=== PATIENT | male | born 1940 | race Caucasian/White ===

== ENCOUNTER 2018-03-23 07:36 | Day surgery (SDC) | payer OTHER ==
--- OUTSIDE RECORDS SUMMARY | 2018-03-23 07:40 | XMS REPORT | Clinical Summary ---
:1940 Author Organization [facility] Address [address] [place] [address] Care Team Providers Name Role Phone Amalia Almonte BLOCK SAW OPERATOR-C Primary Care Provider Allergies No Known Allergies Medications Medication Sig Dispensed Refills Start Date End Date Status losartan (COZAAR) Take 100 mg by 0 Active 100 MG tablet mouth daily. aspirin (ECOTRIN) Take 81 mg by 0 Active 81 MG enteric mouth daily. coated tablet clopidogrel Take 75 mg by 0 Active (PLAVIX) 75 mg mouth daily. tablet famotidine Take 20 mg by 0 Active (PEPCID) 20 MG mouth 2 (two) tablet times a day. atorvastatin Take 20 mg by 0 Active (LIPITOR) 20 MG mouth daily. tablet Default OP ins insulin 70/30 NPH Inject under 0 Active and regular human the skin. (HumuLIN 70/30) Sliding scale 100 unit/mL (70-30) injection metFORMIN Take 500 mg by 0 Active (GLUCOPHAGE) 500 mouth 2 (two) mg tablet times a day with meals. metoprolol Take 50 mg by 0 Active tartrate mouth 2 (two) (LOPRESSOR) 50 mg times a day. tablet amLODIPine Take 10 mg by 0 Active (NORVASC) 10 mg mouth as tablet needed. amlodipine-benazep Take 1 capsule 0 10/04/2017 Discontinued ril (LOTREL) 10-20 by mouth daily. mg per capsule ferrous sulfate Take 325 mg by 0 10/26/2017 Discontinued 325 (65 FE) MG mouth daily tablet with breakfast. traMADol (ULTRAM) Take 50 mg by 0 10/26/2017 Discontinued 50 mg tablet mouth every 6 (six) hours as needed for moderate pain. SUPREP BOWEL PREP Take 2 Bottles 354 mL 0 10/10/2017 10/10/2017 KIT 17.5-3.13-1.6 (354 mL total) gram recon soln by mouth once for 1 dose. Take as directed by physician traMADol (ULTRAM) Take 1 tablet 50 tablet 0 10/26/2017 11/05/2017 50 mg tablet (50 mg total) by mouth every 6 (six) hours as needed (pain) for up to 10 days. Active Problems Problem Noted Date Rectal cancer 10/18/2017 CA of rectum 10/18/2017 Encounters Date Type Specialty Care Team Description 03/01/2018 Office Visit General Surgery Dustin Cam Rectal cancer ([facility]) MD Dar (Primary Dx) Kya Allison NP-C 02/14/2018 Office Visit General Surgery Dustin Cam CA of rectum ([facility]) MD Dar (Primary Dx) Kya Allison NP-C 01/27/2018 Orders Only General Surgery Dustin Cam MD 01/13/2018 Hospital Encounter Radiology CamDustin garcia Ileostomy status MD Dar ([facility]) 01/12/2018 Orders Only General Surgery Dustin Cam MD 01/11/2018 Office Visit General Surgery Dustin Cam Rectal cancer ([facility]) MD Dar (Primary Dx) 01/11/2018 Orders Only General Surgery Dustin Cam Ileostomy status MD Dar ([facility]) (Primary Dx) 11/22/2017 Office Visit General Surgery Keegan, Dehydration ( Primary Dx); Kya CA of rectum QUINTON Griggs 11/10/2017 Emergency Emergency Nura Sousa, Medicine B., DO moderate (Primary Dx) 11/10/2017 Office Visit General Surgery CamDustin garcia Rectal cancer MD Dar (Primary Dx) 11/01/2017 Office Visit General Surgery Letisamy, Rectal cancer Kya (Primary Dx) QUINTON Griggs 10/18/2017 Anesthesia Event General Surgery Jerica Syed, PARK LANDSCAPE ARCHITECT 10/18/2017 Surgery General Surgery Dustin Cam ROBOTIC ASSISTED MD Dar LAPARSCOPIC LOW ANTERIOR RESECTION W/LOOP ILEOSTOMY 10/18/2017 - Hospital Encounter General Surgery Dustin Cam CA of rectum 10/26/2017 MD Dar 10/10/2017 Orders Only General Surgery Dustin Cam MD 10/07/2017 Documentation General Surgery Kya Allison NP-C 10/04/2017 Office Visit General Surgery Dustin Cam Rectal cancer MD Dar (Primary Dx) 10/04/2017 Pre-Admit Testing Pre-Admission Dustin Cam Preop examination ( Primary Dx); Appointment Testing MD Dar Type 2 diabetes mellitus with complication, unspecified termite control servicer insulin use status 09/15/2017 Orders Only General Surgery Dustin Cam MD 09/14/2017 Office Visit General Surgery Dustin Cam Rectal cancer MD Dar (Primary Dx) 06/10/2017 Orders Only General Surgery Keegan, Malignant neoplasm Kya of rectum (Primary QUINTON Griggs Dx) 06/07/2017 Hospital Encounter Radiology Dustin Cam Rectal cancer MD Dar 06/07/2017 Office Visit General Surgery Dustin Cam Rectal cancer MD Dar (Primary Dx) 06/07/2017 Orders Only General Surgery Dustin Cam Rectal cancer MD Dar (Primary Dx) after 03/22/2017 Social History Tobacco Use Types Packs/Day Years Used Date Never Smoker Smokeless Tobacco: Never Used Alcohol Use Drinks/Week oz/Week Comments No Sex Assigned at Date Recorded Not on file Job Start Date Occupation Industry Not on file Not on file Not on file Travel History Travel Start Travel End No recent travel history available. Last Filed Vital Signs Vital Sign Reading Time Taken Blood Pressure 148/75 03/01/2018 1:06 PM SECOND WATCH SERGEANT Pulse 77 03/01/2018 1:06 PM SECOND WATCH SERGEANT Temperature 36.7 C (98 F) 03/01/2018 1:06 PM SECOND WATCH SERGEANT Respiratory Rate 20 11/10/2017 9:21 PM CDT Oxygen Saturation 99% 11/10/2017 9:21 PM CDT Inhaled Oxygen Concentration - - Weight 54.4 kg (120 lb) 01/11/2018 12:57 PM CDT Height 170.2 cm (5' 7") 11/10/2017 1:51 PM CDT Body Mass Index 18.79 01/11/2018 12:57 PM CDT Plan of Treatment Health Maintenance Due Date Last Done Comments DIABETIC RETINAL EYE EXAM 1940 DIABETIC FOOT EXAM 07/26/1950 SHINGRIX VACCINE (1 of 2) 07/26/1991 ZOSTER VACCINE 2001 PNEUMOCOCCAL POLYSACCHARIDE VACCINE AGE 65 AND OVER 2006 PNEUMOCOCCAL-13 2006 INFLUENZA VACCINE 11/09/2017 Implants Implanted Type Area Physician Office Nurse Device Shelf Model / Identifier Expiration Serial / Date Lot Vessel Sealer Extend Surgical N/A: N/A INTUITIVE 06/09/2019 [id number] / Implanted: Qty: 1 on 10/18/2017 by Dustin Cam MD [employer] / Device [id number] Procedures Procedure Name Priority Date/Time Associated Comments Diagnosis SURGICAL PATHOLOGY Routine 01/23/2018 REQUEST FL COLON GASTROGRAFIN Routine 01/13/2018 10:00 Ileostomy status Results for this WATER SOLUBLE ENEMA AM CDT (HCC) procedure are in the results section. LACTIC ACID LEVEL, Timed 11/10/2017 7:38 Results for this SEPSIS - NOW AND PM CDT procedure are in REPEAT 2X EVERY [address] the results HOURS section. CT HEAD WO CONTRAST STAT 11/10/2017 5:42 Results for this PM CDT procedure are in the results section. PHOSPHORUS LEVEL STAT 11/10/2017 2:56 Results for this PM CDT procedure are in the results section. MAGNESIUM LEVEL STAT 11/10/2017 2:56 Results for this PM CDT procedure are in the results section. LACTIC ACID LEVEL, STAT 11/10/2017 2:56 Results for this SEPSIS - NOW AND PM CDT procedure are in REPEAT 2X EVERY 3 the results HOURS section. ZZESTIMATED GFR STAT 11/10/2017 2:56 Results for this PM CDT procedure are in the results section. B NATRIURETIC PEPTIDE STAT 11/10/2017 2:56 Results for this PM CDT procedure are in the results section. TROPONIN STAT 11/10/2017 2:56 Results for this PM CDT procedure are in the results section. COMPREHENSIVE STAT 11/10/2017 2:56 Results for this METABOLIC PANEL PM CDT procedure are in the results section. HC COMPLETE BLD COUNT STAT 11/10/2017 2:56 Results for this W/AUTO DIFF PM CDT procedure are in the results section. ECG 12-LEAD STAT 11/10/2017 2:29 Results for this PM CDT procedure are in the results section. POC GLUCOSE Routine 10/26/2017 11:30 Results for this AM CDT procedure are in the results section. POC GLUCOSE Routine 10/26/2017 8:01 Results for this AM CDT procedure are in the results section. ZZESTIMATED GFR Routine 10/26/2017 4:00 Results for this AM CDT procedure are in the results section. HC COMPLETE BLD COUNT Routine 10/26/2017 4:00 Results for this W/AUTO DIFF AM CDT procedure are in the results section. BASIC METABOLIC PANEL Routine 10/26/2017 4:00 Results for this AM CDT procedure are in the results section. POC GLUCOSE Routine 10/25/2017 8:19 Results for this PM CDT procedure are in the results section. POC GLUCOSE Routine 10/25/2017 4:18 Results for this PM CDT procedure are in the results section. POC GLUCOSE Routine 10/25/2017 12:18 Results for this PM CDT procedure are in the results section. POC GLUCOSE Routine 10/25/2017 7:50 Results for this AM CDT procedure are in the results section. ZZESTIMATED GFR Routine 10/25/2017 4:00 Results for this AM CDT procedure are in the results section. BASIC METABOLIC PANEL Routine 10/25/2017 4:00 Results for this AM CDT procedure are in the results section. MAGNESIUM LEVEL Routine 10/25/2017 4:00 Results for this AM CDT procedure are in the results section. HC COMPLETE BLD COUNT Routine 10/25/2017 3:45 Results for this W/AUTO DIFF AM CDT procedure are in the results section. POC GLUCOSE Routine 10/24/2017 4:10 Results for this PM CDT procedure are in the results section. CT ABDOMEN PELVIS W Routine 10/24/2017 3:40 Results for this CONTRAST PM CDT procedure are in the results section. POC GLUCOSE Routine 10/24/2017 11:18 Results for this AM CDT procedure are in the results section. POC GLUCOSE Routine 10/24/2017 8:01 Results for this AM CDT procedure are in the results section. ZZESTIMATED GFR Routine 10/24/2017 4:08 Results for this AM CDT procedure are in the results section. MAGNESIUM LEVEL Routine 10/24/2017 4:08 Results for this AM CDT procedure are in the results section. BASIC METABOLIC PANEL Routine 10/24/2017 4:08 Results for this AM CDT procedure are in the results section. HC COMPLETE BLD COUNT Routine 10/24/2017 4:08 Results for this W/AUTO DIFF AM CDT procedure are in the results section. POC GLUCOSE Routine 10/23/2017 7:33 Results for this PM CDT procedure are in the results section. POC GLUCOSE Routine 10/23/2017 5:12 Results for this PM CDT procedure are in the results section. POC GLUCOSE Routine 10/23/2017 11:41 Results for this AM CDT procedure are in the results section. POC GLUCOSE Routine 10/23/2017 8:06 Results for this AM CDT procedure are in the results section. HC COMPLETE BLD COUNT Routine 10/23/2017 4:50 Results for this W/AUTO DIFF AM CDT procedure are in the results section. ZZESTIMATED GFR Routine 10/23/2017 4:00 Results for this AM CDT procedure are in the results section. MAGNESIUM LEVEL Routine 10/23/2017 4:00 Results for this AM CDT procedure are in the results section. BASIC METABOLIC PANEL Routine 10/23/2017 4:00 Results for this AM CDT procedure are in the results section. POC GLUCOSE Routine 10/22/2017 5:13 Results for this PM CDT procedure are in the results section. POC GLUCOSE Routine 10/22/2017 11:18 Results for this AM CDT procedure are in the results section. HC COMPLETE BLD COUNT Routine 10/22/2017 8:00 Results for this W/AUTO DIFF AM CDT procedure are in the results section. ZZESTIMATED GFR Routine 10/22/2017 7:50 Results for this AM CDT procedure are in the results section. MAGNESIUM LEVEL Routine 10/22/2017 7:50 Results for this AM CDT procedure are in the results section. BASIC METABOLIC PANEL Routine 10/22/2017 7:50 Results for this AM CDT procedure are in the results section. POC GLUCOSE Routine 10/22/2017 7:09 Results for this AM CDT procedure are in the results section. POC GLUCOSE Routine 10/21/2017 8:35 Results for this PM CDT procedure are in the results section. POC GLUCOSE Routine 10/21/2017 5:36 Results for this PM CDT procedure are in the results section. XR ABDOMEN 1 VW Routine 10/21/2017 4:55 Results for this PM CDT procedure are in the results section. POC GLUCOSE Routine 10/21/2017 1:02 Results for this PM CDT procedure are in the results section. POC GLUCOSE Routine 10/21/2017 7:33 Results for this AM CDT procedure are in the results section. ZZESTIMATED GFR Routine 10/21/2017 4:00 Results for this AM CDT procedure are in the results section. PHOSPHORUS LEVEL Routine 10/21/2017 4:00 Results for this AM CDT procedure are in the results section. MAGNESIUM LEVEL Routine 10/21/2017 4:00 Results for this AM CDT procedure are in the results section. BASIC METABOLIC PANEL Routine 10/21/2017 4:00 Results for this AM CDT procedure are in the results section. HC COMPLETE BLD COUNT Routine 10/21/2017 3:25 Results for this W/AUTO DIFF AM CDT procedure are in the results section. POC GLUCOSE Routine 10/20/2017 9:32 Results for this PM CDT procedure are in the results section. POC GLUCOSE Routine 10/20/2017 5:58 Results for this PM CDT procedure are in the results section. POC GLUCOSE Routine 10/20/2017 1:25 Results for this PM CDT procedure are in the results section. POC GLUCOSE Routine 10/20/2017 8:33 Results for this AM CDT procedure are in the results section. ZZESTIMATED GFR Routine 10/20/2017 4:00 Results for this AM CDT procedure are in the results section. PHOSPHORUS LEVEL Routine 10/20/2017 4:00 Results for this AM CDT procedure are in the results section. MAGNESIUM LEVEL Routine 10/20/2017 4:00 Results for this AM CDT procedure are in the results section. BASIC METABOLIC PANEL Routine 10/20/2017 4:00 Results for this AM CDT procedure are in the results section. HC COMPLETE BLD COUNT Routine 10/20/2017 4:00 Results for this W/AUTO DIFF AM CDT procedure are in the results section. POC GLUCOSE Routine 10/19/2017 9:12 Results for this PM CDT procedure are in the results section. POC GLUCOSE Routine 10/19/2017 3:40 Results for this PM CDT procedure are in the results section. POC GLUCOSE Routine 10/19/2017 1:45 Results for this PM CDT procedure are in the results section. POC GLUCOSE Routine 10/19/2017 11:37 Results for this AM CDT procedure are in the results section. CONSULT TO OSTOMY CARE Routine 10/19/2017 8:11 NURSE AM CDT POC GLUCOSE Routine 10/19/2017 7:20 Results for this AM CDT procedure are in the results section. ZZESTIMATED GFR Routine 10/19/2017 4:00 Results for this AM CDT procedure are in the results section. PHOSPHORUS LEVEL Routine 10/19/2017 4:00 Results for this AM CDT procedure are in the results section. MAGNESIUM LEVEL Routine 10/19/2017 4:00 Results for this AM CDT procedure are in the results section. BASIC METABOLIC PANEL Routine 10/19/2017 4:00 Results for this AM CDT procedure are in the results section. HC COMPLETE BLD COUNT Routine 10/19/2017 4:00 Results for this W/AUTO DIFF AM CDT procedure are in the results section. POC GLUCOSE Routine 10/18/2017 9:31 Results for this PM CDT procedure are in the results section. HEMOGLOBIN A1C Routine 10/18/2017 7:19 Results for this PM CDT procedure are in the results section. POC GLUCOSE Routine 10/18/2017 6:50 Results for this PM CDT procedure are in the results section. ID AN ELECTIVE Routine 10/18/2017 2:24 ENDOTRACHEAL AIRWAY PM CDT Procedure Note - Zac Cameron CRNA - 10/18/2017 2:24 PM CDT Airway Date/Time: 10/18/2017 1:34 PM Performed by: ZAC CAMERON Authorized by: MACY KAMARA Location: OR Urgency: Elective Difficult Airway: No Resident/WASTE DISPOSAL ATTENDANT/AA: ZAC CAMERON Performed by: resident/WASTE DISPOSAL ATTENDANT/AA Preoxygenated with 100% O2: Yes Mask Ventilation: Assisted mask Final Airway Type: Endotracheal airway Final Endotracheal Airway: ETT Cuffed: Yes Technique Used: Direct laryngoscopy Devices/Methods Used in Placement: Intubating stylet Insertion Site: Oral Blade Type: Wise Laryngoscope Blade/Videolaryngoscope Blade Size: 2 ETT Size (mm): 7.0 Cuff at minimum occlusion pressure: Yes Measured from: Lips ETT to Lips (cm): 24 Placement Verified by: CO2 detection, direct visualization and equal breath sounds Laryngoscopic view: Grade I - full view of glottis Rapid Sequence Induction (RSI): No Modified RSI: No Number of Attempts at Approach: 1 Eyes taped immediately after LOC. Atraumatic DL. No apparent change to oropharynx/lips ARTERIAL LINE Routine 10/18/2017 2:05 PM CDT Procedure Note - Macy Kamara MD - 10/18/2017 2:05 PM CDT Arterial line Performed by: MACY KAMARA Authorized by: MACY KAMARA Patient Location: OR Start Time: 10/18/2017 2:06 PM End Time: 10/18/2017 2:06 PM Staff: Anesthesiologist: MACY KAMARA Performed by: Anesthesiologist Pre-procedure: patient identified, IV checked, site and side verified, risks and benefits discussed, procedure verified, surgical consent complete, patient position confirmed, monitors and equipment checked and pre-op evaluation complete MSBT: antiseptic used, all elements of maximal sterile barrier technique followed, hand hygiene performed, cap/gown used by other personnel and solutions labeled Indications: Indications: hemodynamic monitoring Anesthesia: Anesthesia: General Procedure Details: Arterial Line placement: Placed post induction Line placement site: Radial Line placement side: Right Arterial line gauge: 20 G Number of attempts: 2 Ultrasound guidance used: No Post-procedure: Post-procedure: Sterile dressing applied Post procedure circulation, sensation, movement: Normal Patient tolerance: Patient tolerated the procedure well with no immediate complications RESECTION, COLON, LOW ANTERIOR, 10/18/2017 12:30 PM CDT CA of rectum LAPAROSCOPIC, ROBOT-ASSISTED Special Needs XI POC GLUCOSE Routine 10/18/2017 10:38 AM Results for this CDT procedure are in the results section. SURGICAL PATHOLOGY Routine 10/18/2017 8:57 AM Results for this REQUEST CDT procedure are in the results section. SURGICAL PATHOLOGY Routine 10/18/2017 8:57 AM Results for this REQUEST CDT procedure are in the results section. SURGICAL PATHOLOGY Routine 10/18/2017 8:57 AM Results for this REQUEST CDT procedure are in the results section. ZZESTIMATED GFR Routine 10/04/2017 9:11 AM Results for this CDT procedure are in the results section. CBC HEMOGRAM Routine 10/04/2017 9:11 AM Preop examination Results for this CDT procedure are in the results section. TYPE AND SCREEN Routine 10/04/2017 9:11 AM Preop examination Results for this CDT procedure are in the results section. HEMOGLOBIN A1C Routine 10/04/2017 9:11 AM Type 2 diabetes Results for this CDT mellitus with procedure are in complication, the results unspecified long section. term insulin use status Preop examination COMPREHENSIVE Routine 10/04/2017 9:11 AM Preop examination Results for this METABOLIC PANEL CDT procedure are in the results section. MRI PELVIS W WO STAT 06/07/2017 3:00 PM Rectal cancer Results for this CONTRAST SECOND WATCH SERGEANT procedure are in the results section. ZZESTIMATED GFR Routine 06/07/2017 2:02 PM Results for this SECOND WATCH SERGEANT procedure are in the results section. CREATININE LEVEL Routine 06/07/2017 2:02 PM Results for this SECOND WATCH SERGEANT procedure are in the results section. POC GLUCOSE Routine 06/07/2017 2:01 PM Results for this SECOND WATCH SERGEANT procedure are in the results section. after 03/22/2017 Results Surgical pathology request (01/23/2018)Only the most recent of4 resultswithin the time period is included. Specimen Tissue Narrative Performed At [place] Colon Gastrografin Water Soluble Enema (01/13/2018 10:00 AM CDT) Narrative Performed At EXAMINATION:[place] COLON GASTROGRAFIN WATER SOLUBLE ENEMA HM RADIANT CLINICAL HISTORY:Z93.2 Ileostomy status, ileostomy Closure COMPARISON:CT of the abdomen and pelvis dated 10/24/2017 TECHNIQUE: The patient's loop ileostomy was catheterized using a flexible catheter. Gastrografin was instilled to opacify the ileostomy as well as the colon. The colon was opacified in a antegrade fashion to the rectum. Spot radiographs and overhead films were obtained. FLUOROSCOPIC TIME:6.7 minutes NUMBER OF IMAGES: 23 FINDINGS: The colon was normally distensible. There is evidence of prior low anterior resection with an anastomosis in the pelvis. There is some thickening at the level of the anastomosis but without evidence of extravasation of contrast material. IMPRESSION: Prior low anterior resection without evidence of anastomotic leak. [facility]-[id number] Procedure Note [facility], Radiology Results Incoming - 01/13/2018 10:14 AM CDT EXAMINATION: [place] COLON GASTROGRAFIN WATER SOLUBLE ENEMA CLINICAL HISTORY: Z93.2 Ileostomy status, ileostomy Closure COMPARISON: CT of the abdomen and pelvis dated 10/24/2017 TECHNIQUE: The patient's loop ileostomy was catheterized using a flexible catheter. Gastrografin was instilled to opacify the ileostomy as well as the colon. The colon was opacified in a antegrade fashion to the rectum. Spot radiographs and overhead films were obtained. FLUOROSCOPIC TIME: 6.7 minutes NUMBER OF IMAGES: 23 FINDINGS: The colon was normally distensible. There is evidence of prior low anterior resection with an anastomosis in the pelvis. There is some thickening at the level of the anastomosis but without evidence of extravasation of contrast material. IMPRESSION: Prior low anterior resection without evidence of anastomotic leak. [facility]-[id number] Performing Organization Address City/[facility]/Zipcode Phone Number [facility] [address] [place] [address] Lactic acid level, SEPSIS - Now and repeat 2x every 3 hours (11/10/2017 7:38 PM CDT)Only the most recent of2 resultswithin the time period is included. Lactic acid 2.2 0.5 - 2.2 mmol/L [facility] DEPARTMENT OF PATHOLOGY AND GENOMIC MEDICINE Specimen Blood Performing Organization Address City/[facility] Phone Number [facility] DEPARTMENT OF PATHOLOGY AND [address] [place] [id number] Head Wo Contrast (11/10/2017 5:42 PM CDT) Narrative Performed At EXAMINATION: CT HEAD WO CONTRAST RADIANT CLINICAL HISTORY: Neuro deficit(s)subacute, near syncope COMPARISON:None TECHNIQUE: Noncontrast CT of the brain was performed from the skull base to the vertex. Both soft tissue and bone reconstruction algorithms are interpreted. CT imaging was performed with iterative reconstruction techniques and/or automated exposure control to reduce radiation dose. FINDINGS: No intracranial hemorrhage, extra-axial collection, or mass-effect is seen.No acute cortical infarct is identified. No hyperdense vessel is seen. 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 Small chronic lacunar infarcts are noted in the left basal ganglia. No air-fluid level is seen in the visualized portions of the paranasal sinuses. Mastoid air cells are clear. IMPRESSION: No acute intracranial abnormality identified. [facility]-[id number] Procedure Note Interface, Radiology Results Incoming - 11/10/2017 5:48 PM CDT EXAMINATION: CT HEAD WO CONTRAST CLINICAL HISTORY: Neuro deficit(s) subacute, near syncope COMPARISON: None TECHNIQUE: Noncontrast CT of the brain was performed from the skull base to the vertex. Both soft tissue and bone reconstruction algorithms are interpreted. CT imaging was performed with iterative reconstruction techniques and/or automated exposure control to reduce radiation dose. FINDINGS: No intracranial hemorrhage, extra-axial collection, or mass-effect is seen. No acute cortical infarct is identified. No hyperdense vessel is seen. 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 Small chronic lacunar infarcts are noted in the left basal ganglia. No air-fluid level is seen in the visualized portions of the paranasal sinuses. Mastoid air cells are clear. IMPRESSION: No acute intracranial abnormality identified. [facility]-[id number] Performing Organization Address City/[facility]/Zipcode Phone Number [facility] [address] [place] [phone] Estimated GFR (11/10/2017 2:56 PM CDT)Only the most recent of11 resultswithin the time period is included. GFR Non Af Amer 82 mL/min/1.73 m2 [facility] DEPARTMENT OF PATHOLOGY AND GENOMIC MEDICINE GFR Af Amer >90 mL/min/1.73 m2 [facility] DEPARTMENT OF Comment: PATHOLOGY AND GENOMIC Chronic kidney disease: <60 mL/min/1.73m2 MEDICINE Kidney failure: <15 mL/min/1.73m2 The estimated GFR is calculated from the IDMS-traceable Modification of Diet in Renal Disease Equation. The accuracy of the calculation is poor when the creatinine is normal. Calculated values >90 mL/min/1.73m2 are not reported. This equation has not been validated in children (<18 years), women, the elderly (>70 years), or ethnic groups other than Caucasians and Americans. Specimen Plasma specimen Performing Organization Address [facility] City Phone Number [facility] DEPARTMENT OF PATHOLOGY AND [address] [place] [phone] [facility] Troponin (11/10/2017 2:56 PM CDT) Troponin <0.30 0.00 - 0.30 ng/mL [facility] DEPARTMENT OF PATHOLOGY Comment: AND GENOMIC MEDICINE 0.30 - 1.49 ng/mlMay indicate increased risk of acute coronary syndrome. >=1.5 ng/mlConsistent with acute myocardial infarction. The diagnostic value of a single normal or non-diagnostic result is questionable.Serial samples at 2-6 hour intervals are required to rule out acute myocardial injury. Specimen Plasma specimen Performing Organization Address [facility] Phone Number [facility] DEPARTMENT OF PATHOLOGY AND [address] [place] [phone] [employer] CBC with platelet and differential (11/10/2017 2:56 PM CDT)Only the most recent of9 resultswithin the time period is included. WBC 11.26 (H) 4.50 - 11.00 k/uL [facility] DEPARTMENT OF PATHOLOGY AND GENOMIC MEDICINE RBC 3.57 (L) 4.40 - 6.00 m/uL [facility] DEPARTMENT OF PATHOLOGY AND GENOMIC MEDICINE HGB 10.4 (L) 14.0 - 18.0 g/dL [facility] DEPARTMENT OF PATHOLOGY AND GENOMIC MEDICINE HCT 31.8 (L) 41.0 - 51.0 % [facility] DEPARTMENT OF PATHOLOGY AND GENOMIC MEDICINE MCV 89.1 82.0 - 100.0 fL [facility] DEPARTMENT OF PATHOLOGY AND GENOMIC MEDICINE MCH 29.1 27.0 - 34.0 pg [facility] DEPARTMENT OF PATHOLOGY AND GENOMIC MEDICINE MCHC 32.7 31.0 - 37.0 g/dL [facility] DEPARTMENT OF PATHOLOGY AND GENOMIC MEDICINE RDW - SD 40.0 37.0 - 55.0 fL [facility] DEPARTMENT OF PATHOLOGY AND GENOMIC MEDICINE MPV 9.6 8.8 - 13.2 fL [facility] DEPARTMENT OF PATHOLOGY AND GENOMIC MEDICINE Platelet count 314 150 - 400 k/uL [facility] DEPARTMENT OF PATHOLOGY AND GENOMIC MEDICINE Nucleated RBC 0.00 /100 WBC [facility] DEPARTMENT OF PATHOLOGY AND GENOMIC MEDICINE Neutrophils 81.5 (H) 39.0 - 69.0 % [facility] DEPARTMENT OF PATHOLOGY AND GENOMIC MEDICINE Lymphocytes 8.2 (L) 25.0 - 45.0 % [facility] DEPARTMENT OF PATHOLOGY AND GENOMIC MEDICINE Monocytes 7.0 0.0 - 10.0 % [facility] DEPARTMENT OF PATHOLOGY AND GENOMIC MEDICINE Eosinophils 2.0 0.0 - 5.0 % [facility] DEPARTMENT OF PATHOLOGY AND GENOMIC MEDICINE Basophils 0.9 0.0 - 1.0 % [facility] DEPARTMENT OF PATHOLOGY AND GENOMIC MEDICINE Immature granulocytes 0.4Comment: 0.0 - 1.0 % [facility] DEPARTMENT OF "Immature PATHOLOGY AND GENOMIC granulocytes" MEDICINE (promyelocytes, myelocytes, metamyelocytes) Specimen Blood Performing Organization Address City/State/Zipcode Phone Number [facility] DEPARTMENT OF PATHOLOGY AND [address] [place] [address] [employer] Phosphorus level (11/10/2017 2:56 PM CDT)Only the most recent of4 resultswithin the time period is included. Phosphorus 3.6 2.4 - 4.5 mg/dL [facility] DEPARTMENT OF PATHOLOGY AND GENOMIC MEDICINE Specimen Plasma specimen Performing Organization Address City/[facility]/Zipcode Phone Number [facility] DEPARTMENT OF PATHOLOGY AND [address] [place], [place] [phone] [facility] B natriuretic peptide (11/10/2017 2:56 PM CDT) BNP 123 (H) 0 - 100 pg/mL [facility] DEPARTMENT OF PATHOLOGY AND GENOMIC MEDICINE Specimen Blood Narrative Performed At [facility] results called to and read back by [facility] DEPARTMENT OF PATHOLOGY AND GENOMIC RADHA OLIVEIRA IN [place] AT MEDICINE 11/10/201716:07 Performing Organization Address City/State/Zipcode Phone Number [facility] DEPARTMENT OF PATHOLOGY AND [address] [place] [phone] [facility] Magnesium level (11/10/2017 2:56 PM CDT)Only the most recent of8 resultswithin the time period is included. Magnesium 1.6 1.6 - 2.4 mg/dL [facility] DEPARTMENT OF PATHOLOGY AND GENOMIC MEDICINE Specimen Plasma specimen Performing Organization Address City/[facility] Phone Number [facility] DEPARTMENT OF PATHOLOGY AND [address] [place] [phone] [facility] Comprehensive metabolic panel (11/10/2017 2:56 PM CDT)Only the most recent of2 resultswithin the time period is included. Sodium 141 135 - 148 mEq/L [facility] DEPARTMENT OF PATHOLOGY AND GENOMIC MEDICINE Potassium 4.3 3.5 - 5.0 mEq/L [facility] DEPARTMENT OF PATHOLOGY AND GENOMIC MEDICINE Chloride 101 98 - 112 mEq/L [facility] DEPARTMENT OF PATHOLOGY AND GENOMIC MEDICINE CO2 22 (L) 24 - 31 mEq/L [facility] DEPARTMENT OF PATHOLOGY AND GENOMIC MEDICINE Anion gap 18@ANIO (H) 7 - 15 mEq/L [facility] DEPARTMENT OF PATHOLOGY AND GENOMIC MEDICINE BUN 16 8 - 23 mg/dL [facility] DEPARTMENT OF PATHOLOGY AND GENOMIC MEDICINE Creatinine 0.9 0.7 - 1.2 mg/dL [facility] DEPARTMENT OF PATHOLOGY AND GENOMIC MEDICINE Glucose 195 (H) 65 - 99 mg/dL [facility] DEPARTMENT OF PATHOLOGY AND GENOMIC MEDICINE Calcium 9.6 8.8 - 10.2 mg/dL [facility] DEPARTMENT OF PATHOLOGY AND GENOMIC MEDICINE Protein 7.4 6.3 - 8.3 g/dL [facility] DEPARTMENT OF Comment: PATHOLOGY AND GENOMIC [place] 4.6-7.0 g/dL MEDICINE 1 week 4.4-7.6 g/dL 7 months-1year5.1-7.3 g/dL 1-2 years5.6-7.5 g/dL >3 years6.0-8.0 g/dL 18-150 6.3-8.3 g/dL Albumin 3.4 (L) 3.5 - 5.0 g/dL [facility] DEPARTMENT OF PATHOLOGY AND GENOMIC MEDICINE A/G ratio 0.8 0.7 - 3.8 [facility] DEPARTMENT OF PATHOLOGY AND GENOMIC MEDICINE Alkaline phosphatase 100 40 - 129 U/L [facility] DEPARTMENT OF PATHOLOGY AND GENOMIC MEDICINE AST 21 10 - 50 U/L [facility] DEPARTMENT OF PATHOLOGY AND GENOMIC MEDICINE ALT 16 5 - 50 U/L [facility] DEPARTMENT OF PATHOLOGY AND GENOMIC MEDICINE Total bilirubin 0.4 0.0 - 1.2 mg/dL [facility] DEPARTMENT OF PATHOLOGY AND GENOMIC MEDICINE Specimen Plasma specimen Performing Organization Address [facility] Phone Number [facility] DEPARTMENT OF PATHOLOGY AND [address] [place] [phone] [place] [address] ECG 12 lead (11/10/2017 2:29 PM CDT) Ventricular rate 83 [facility] Atrial rate 83 [facility] ID interval 192 [facility] QRSD interval 100 [facility] QT interval 378 [facility] QTC interval 444 [facility] P axis 1 80 [facility] QRS axis 1 -30 [facility] T wave axis 75 [facility] EKG impression Normal sinus rhythm-Possible Left atrial [facility] MUSE enlargement-Left axis deviation-Abnormal ECG-No previous ECGs available- Performing Organization Address [facility] Phone Number [facility] MUSE [address] [place] [phone] POC glucose (10/26/2017 11:30 AM CDT)Only the most recent of33 resultswithin the time period is included. POC glucose 91 65 - 99 mg/dL [facility] DEPARTMENT OF PATHOLOGY AND Comment: GENOMIC MEDICINE [facility] Notified RN Meter ID: [id number] [place]: Izabela Polanco Performing Organization Address [facility]ercome Phone Number [facility] DEPARTMENT OF PATHOLOGY AND [address] [place] [phone] [facility] MEDICINE Basic metabolic panel (10/26/2017 4:00 AM CDT)Only the most recent of8 resultswithin the time period is included. Sodium 134 (L) 135 - 148 mEq/L [facility] DEPARTMENT OF PATHOLOGY AND GENOMIC MEDICINE Potassium 3.4 (L) 3.5 - 5.0 mEq/L [facility] DEPARTMENT OF PATHOLOGY AND GENOMIC MEDICINE Chloride 91 (L) 98 - 112 mEq/L [facility] DEPARTMENT OF PATHOLOGY AND GENOMIC MEDICINE CO2 31 24 - 31 mEq/L [facility] DEPARTMENT OF PATHOLOGY AND GENOMIC MEDICINE Anion gap 12@ANIO 7 - 15 mEq/L [facility] DEPARTMENT OF PATHOLOGY AND GENOMIC MEDICINE BUN 15 8 - 23 mg/dL [facility] DEPARTMENT OF PATHOLOGY AND GENOMIC MEDICINE Creatinine 1.1 0.7 - 1.2 mg/dL [facility] DEPARTMENT OF PATHOLOGY AND GENOMIC MEDICINE Glucose 84 65 - 99 mg/dL [facility] DEPARTMENT OF PATHOLOGY AND GENOMIC MEDICINE Calcium 9.4 8.8 - 10.2 mg/dL [facility] DEPARTMENT OF PATHOLOGY AND GENOMIC MEDICINE Specimen Plasma specimen Performing Organization Address City/State/Zipcode Phone Number [facility] DEPARTMENT OF PATHOLOGY AND [address] [place] [address] [facility] CT Abdomen Pelvis W Contrast (10/24/2017 3:40 PM CDT) Narrative Performed At EXAMINATION:CT ABDOMEN PELVIS W CONTRAST RADIANT CLINICAL HISTORY:Abd distension, s p LAR - abdominal distension COMPARISON:None. TECHNIQUE: Multiple axial CT images of the Abdomen and pelvis were obtainedWith IV contrast Oral contrast was administered. . Sagittal and coronal reconstructions were done. CT imaging was performed with iterative reconstruction technique and/or automated exposure control to reduce radiation dose. FINDINGS: HEPATOBILIARY:No focal hepatic lesions. No biliary ductal dilation. GALLBLADDER: Normal. SPLEEN:No splenomegaly. PANCREAS:Small cystic lesion in the pancreatic tail measures 7 mm. No pancreatic duct dilation or surrounding inflammatory change. ADRENALS:No adrenal nodules. KIDNEYS:No stones or hydronephrosis. Bilateral renal cysts measure up to 2.2 cm in the right. No solid enhancing mass. PERITONEUM/RETROPERITONEUM:No significant fluid or located fluid collections. Retroperitoneal lymph nodes are small and subcentimeter. Tiny postoperative soft tissue air present anterior to the liver. ABDOMINAL AORTA/IVC: No aneurysm or dissection. GI TRACT:Small bowel distention with air-fluid levels measuring up to 3 cm in diameter . Small bowel slowly decreasing diameter up to the right lower quadrant ostomy. Distal to this, bowel loops are decompressed. PELVIC ORGANS/BLADDER:Limited detailed evaluation due to streak artifacts from hip prostheses. There is some postoperative changes of the rectum. The colon is nondistended. The urinary bladder is fluid-filled. Air within the urinary bladder likely due to recent catheterization. BONES AND SOFT TISSUES:Expansile lytic lesion in the right iliac bone measures 2.9 cm bulges into the right psoas muscle. This finding was discussed in the MRI of the pelvis 06/07/2017 and appear stable. VISUALIZED LOWER CHEST: No acute abnormality. Heart is enlarged. Small hilar hernia. IMPRESSION: Mildly distended small bowel loops from either ileus or a low-grade partial obstruction at the level of the ostomy. [facility]-[id number] Procedure Note [facility], Radiology Results - 10/24/2017 4:51 PM CDT EXAMINATION: CT ABDOMEN PELVIS W CONTRAST CLINICAL HISTORY: Abd distension, s p LAR - abdominal distension COMPARISON: None. TECHNIQUE: Multiple axial CT images of the Abdomen and pelvis were obtained With IV contrast Oral contrast was administered. . Sagittal and coronal reconstructions were done. CT imaging was performed with iterative reconstruction technique and/or automated exposure control to reduce radiation dose. FINDINGS: HEPATOBILIARY: No focal hepatic lesions. No biliary ductal dilation. GALLBLADDER: Normal. SPLEEN: No splenomegaly. PANCREAS: Small cystic lesion in the pancreatic tail measures 7 mm. No pancreatic duct dilation or surrounding inflammatory change. ADRENALS: No adrenal nodules. KIDNEYS: No stones or hydronephrosis. Bilateral renal cysts measure up to 2.2 cm in the right. No solid enhancing mass. PERITONEUM/RETROPERITONEUM: No significant fluid or located fluid collections. Retroperitoneal lymph nodes are small and subcentimeter. Tiny postoperative soft tissue air present anterior to the liver. ABDOMINAL AORTA/IVC: No aneurysm or dissection. GI TRACT: Small bowel distention with air-fluid levels measuring up to 3 cm in diameter . Small bowel slowly decreasing diameter up to the right lower quadrant ostomy. Distal to this, bowel loops are decompressed. PELVIC ORGANS/BLADDER: Limited detailed evaluation due to streak artifacts from hip prostheses. There is some postoperative changes of the rectum. The colon is nondistended. The urinary bladder is fluid-filled. Air within the urinary bladder likely due to recent catheterization. BONES AND SOFT TISSUES: Expansile lytic lesion in the right iliac bone measures 2.9 cm bulges into the right psoas muscle. This finding was discussed in the MRI of the pelvis 06/07/2017 and appear stable. VISUALIZED LOWER CHEST: No acute abnormality. Heart is enlarged. Small hilar hernia. IMPRESSION: Mildly distended small bowel loops from either ileus or a low-grade partial obstruction at the level of the ostomy. [facility]-[id number] Performing Organization Address City/State/Zipcode Phone Number [facility] [address] [place] [address] XR Abdomen 1 Vw (10/21/2017 4:55 PM CDT) Narrative Performed At EXAMINATION:XR ABDOMEN 1 VW RADIANT CLINICAL HISTORY:ileus COMPARISON:None. IMPRESSION: 1.Diffuse gaseous distention of small bowel loops up to 3.5 cm in keeping with ileus. 2.No evidence of organomegaly or ascites. 3.Intact skeleton. [id number] Procedure Note Interface, Radiology Results Incoming - 10/21/2017 5:00 PM CDT EXAMINATION: XR ABDOMEN 1 VW CLINICAL HISTORY: ileus COMPARISON: None. IMPRESSION: 1. Diffuse gaseous distention of small bowel loops up to 3.5 cm in keeping with ileus. 2. No evidence of organomegaly or ascites. 3. Intact skeleton. [facility]-[id number] Performing Organization Address [facility] Phone Number [facility] [address] [place] [address] Hemoglobin A1c (10/18/2017 7:19 PM CDT)Only the most recent of2 resultswithin the time period is included. Hemoglobin A1C 9.7 (H) 4.0 - 5.6 % [facility] DEPARTMENT OF PATHOLOGY Comment: AND [employer] HbA1c cutoffs for diagnosing diabetes: 4.0% - 5.6%=normal 5.7% - 6.4%=increased risk for diabetes (prediabetes) >=6.5%=diabetes Goals for glycemic control (ADA 2016) < 7.0%Target for non adults with diabetes. More or less stringent targets may be appropriate for individual patients. <7.5% Target for Children and adolescents with type 1 diabetes. Specimen Blood Performing Organization Address City/[facility]/Zipcode Phone Number [facility] DEPARTMENT OF PATHOLOGY AND [address] [place] [address] [employer] CBC hemogram (10/04/2017 9:11 AM CDT) WBC 7.61 4.50 - 11.00 k/uL [facility] DEPARTMENT OF PATHOLOGY AND GENOMIC MEDICINE RBC 4.28 (L) 4.40 - 6.00 m/uL [facility] DEPARTMENT OF PATHOLOGY AND GENOMIC MEDICINE HGB 12.7 (L) 14.0 - 18.0 g/dL [facility] DEPARTMENT OF PATHOLOGY AND GENOMIC MEDICINE HCT 38.5 (L) 41.0 - 51.0 % [facility] DEPARTMENT OF PATHOLOGY AND GENOMIC MEDICINE MCV 90.0 82.0 - 100.0 fL [facility] DEPARTMENT OF PATHOLOGY AND GENOMIC MEDICINE MCH 29.7 27.0 - 34.0 pg [facility] DEPARTMENT OF PATHOLOGY AND GENOMIC MEDICINE MCHC 33.0 31.0 - 37.0 g/dL [facility] DEPARTMENT OF PATHOLOGY AND GENOMIC MEDICINE RDW - SD 45.2 37.0 - 55.0 fL [facility] DEPARTMENT OF PATHOLOGY AND GENOMIC MEDICINE MPV 10.2 8.8 - 13.2 fL [facility] DEPARTMENT OF PATHOLOGY AND GENOMIC MEDICINE Platelet count 171 150 - 400 k/uL [facility] DEPARTMENT OF PATHOLOGY AND GENOMIC MEDICINE Nucleated RBC 0.00 /100 WBC [facility] DEPARTMENT OF PATHOLOGY AND GENOMIC MEDICINE Specimen Blood Performing Organization Address City/[facility] Phone Number [facility] DEPARTMENT OF PATHOLOGY AND [address] [place] [address] GENOMIC MEDICINE Type and screen (10/04/2017 9:11 AM CDT) ABO grouping O [facility] DEPARTMENT OF PATHOLOGY AND GENOMIC MEDICINE Rh type POS [facility] DEPARTMENT OF PATHOLOGY AND GENOMIC MEDICINE Antibody screen (gel) NEG [facility] DEPARTMENT OF PATHOLOGY AND GENOMIC MEDICINE Specimen Blood Performing Organization Address City/[facility] Phone Number [facility] DEPARTMENT OF PATHOLOGY AND [address] [place] [address] MRI Pelvis W Wo Contrast (06/07/2017 3:00 PM SECOND WATCH SERGEANT) Narrative Performed At EXAMINATION:MRI PELVIS W WO CONTRAST RADIANT CLINICAL HISTORY:C20 Malignant neoplasm of rectum, rectal cancer COMPARISON:None. TECHNIQUE: Multiplanar, multisequence MRI of the pelvis with and without contrast material with a rectal cancer protocol. High-resolution T2 images were obtained. IMPRESSION: There is motion artifact on many of the sequences which slightly limits evaluation. 1. There is a mid rectal tumor. The inferior margin of the tumor is 6 cm from the anal verge and 3 cm from the top of the anal sphincter complex. 2. The tumor extends 5 cm in length. It has a semiannular morphology with raised edges at12 o'clock and 3 o'clock. The central invasive portion is on the right and posterior. 3. There is mild extension of tumor into the mesorectal fat consistent with a MRI stage T3 tumor. The tumor invades 2-3 mm beyond the outer edge of the muscularis propria. The shortest distance from the tumor margin to the mesorectal fascia is 3 mm posteriorly. 4. There are several nonspecific mesorectal lymph nodes. Largest is on the left at the superior margin of the tumor and measures 5 mm (series 9, image 9). 5. No evidence of extramural vascular invasion. 6. Other: *Bilateral hip arthroplasties. There is an expansile process associated with the right hip arthroplasty measuring approximately 4.3 cm. It contains fluid and debris. It involves the acetabulum and i liopsoas bursa. The collection extends through the cortex along the obturator region. It is felt to most likely be related to an adverse reaction to the metallic hardware. Orthopedic consultation can be considered. *2 signal voids in the posterior bladder may represent small bladder stones , larger measures 8 mm. *The prostate has abnormal signal intensity within the central gland. This examination was not tailored for the evaluation of the prostate. Advise correlation with PSA. Dedicated prostate MRI could be obtained for further evaluation if PSA is elevated. [facility]-[id number] Procedure Note [facility], Radiology Results Incoming - 06/08/2017 12:18 PM SECOND WATCH SERGEANT EXAMINATION: MRI PELVIS W WO CONTRAST CLINICAL HISTORY: C20 Malignant neoplasm of rectum, rectal cancer COMPARISON: None. TECHNIQUE: Multiplanar, multisequence MRI of the pelvis with and without contrast material with a rectal cancer protocol. High-resolution T2 images were obtained. IMPRESSION: There is motion artifact on many of the sequences which slightly limits evaluation. 1. There is a mid rectal tumor. The inferior margin of the tumor is 6 cm from the anal verge and 3 cm from the top of the anal sphincter complex. 2. The tumor extends 5 cm in length. It has a semiannular morphology with raised edges at 12 o'clock and 3 o'clock. The central invasive portion is on the right and posterior. 3. There is mild extension of tumor into the mesorectal fat consistent with a MRI stage T3 tumor. The tumor invades 2-3 mm beyond the outer edge of the muscularis propria. The shortest distance from the tumor margin to the mesorectal fascia is 3 mm posteriorly. 4. There are several nonspecific mesorectal lymph nodes. Largest is on the left at the superior margin of the tumor and measures 5 mm (series 9, image 9). 5. No evidence of extramural vascular invasion. 6. Other: * Bilateral hip arthroplasties. There is an expansile process associated with the right hip arthroplasty measuring approximately 4.3 cm. It contains fluid and debris. It involves the acetabulum and iliopsoas bursa. The collection extends through the cortex along the obturator region. It is felt to most likely be related to an adverse reaction to the metallic hardware. Orthopedic consultation can be considered. * 2 signal voids in the posterior bladder may represent small bladder stones, larger measures 8 mm. * The prostate has abnormal signal intensity within the central gland. This examination was not tailored for the evaluation of the prostate. Advise correlation with PSA. Dedicated prostate MRI could be obtained for further evaluation if PSA is elevated. [facility]-[id number] Performing Organization Address City/[facility]/Zipcode Phone Number [facility] [address] [place] [address] Creatinine level (06/07/2017 2:02 PM SECOND WATCH SERGEANT) Creatinine 0.8Comment: Testing performed 0.7 - 1.2 mg/dL [facility] DEPARTMENT OF PATHOLOGY on the ISTAT instrument by RN AND [employer] [id number] Specimen Plasma specimen Performing Organization Address City/[facility] Phone Number [facility] DEPARTMENT OF PATHOLOGY AND [address] [place] [address] [employer] after 03/22/2017 Insurance Payer Benefit Plan / Group Subscriber ID Type Phone Address MEDICARE MEDICARE PART A AND B xxxxxxxxxx Medicare [place], [place] Guarantor Name Account Type Relation to Date of Phone Billing Patient Address Yaw Paez Personal/Family Self 1940 [address] (Home) [place] [address] Advance Directives Patient has advance care planning documents on file. For more information, please contact:Maud [id number] [place] [address]
--- OUTSIDE RECORDS SUMMARY | 2018-03-23 07:41 | XMS REPORT ---
:1940 Author Organization [facility] Address [address] [place] [address] [address] [place] [address] Care Team Providers Name Role Phone NIKO CAM Unavailable Unavailable Problems This patient has no known problems. Allergies, Adverse Reactions, Alerts This patient has no known allergies or adverse reactions. Medications This patient has no known medications. Results Test Description Test Time Test Comments Text Results Atomic Results Result Comments POCT-GLUCOSE METER 2018-01-26 21:28:00 Test Item Value Reference Range Comments POC-GLUCOSE METER (BEAKER) (test 103 mg/dL 70-[address] [facility] [address] [facility] qpsq=9989) [facility] [address] POCT-GLUCOSE [id number] 17:14:00 Test Item Value Reference Range Comments POC-GLUCOSE METER (BEAKER) 231 mg/dL 70-[address] [facility] [address] [facility] (test vvnx=2681) [facility] [address] TISSUE [id number] 16:33:00Surgical Pathology Report Case: [id number] Authorizing Provider: Niko Cam MD Collected: 01/23/2018 1749 Ordering Location: [facility] PERIOPERATIVE Received: 01/24/2018 0819 SERVICES Pathologist: Mak Combs MD Specimen: Ileostomy A. ILEUM, ILEOSTOMY TAKEDOWN: - SMALL BOWEL WITH FOCAL EROSION,CONGESTION, SUBMUCOSAL FIBROSIS - SKIN WITH REACTIVE CHANGES - NEGATIVE FOR DYSPLASIA AND MALIGNANCY Signing Pathologist Direct Phone Line: [phone] signed by Mak Combs MD on 01/26/2018 at 4:33 [id number] X 1 Cancer of rectum Ileostomy The specimen is received in a formalin-filled container labeled with the patient's information and labeled "ileostomy" and consists of a segment of small bowel measuring 6 cm in length x3.5 cm in circumference with de la cruz-pink skin component that is centrally located measuring 3.5 x 2 x 0.5 cm. The serosa is de la cruz-red and dull with adhesions. No distinct abnormality is seen.Section code: A1, stapled margins en face; A2, A3, insurance representative small bowel and skin component. CG/ew PerformedPOCT-GLUCOSE [id number] 12:29:00 Test Item Value Reference Range Comments POC-GLUCOSE METER (BEAKER) 146 mg/dL 70-110 TESTED AT [place] [id number] [facility] (test qnko=1601) [facility] [address] POCT-GLUCOSE [id number] 08:42:00 Test Item Value Reference Range Comments POC-GLUCOSE METER (BEAKER) 179 mg/dL 70-110 TESTED AT [address] (test gfcp=7600) [facility] [address] [id number] 06:49:00 Test Item Value Reference Range Comments PHOSPHORUS (BEAKER) (test mgfn=780) 3.4 mg/dL 2.3-4.7 [id number] 06:49:00 Test Item Value Reference Range Comments MAGNESIUM (BEAKER) (test tmis=425) 1.6 mg/dL 1.6-2.6 BASIC METABOLIC [id number] 06:49:00 Test Item Value Reference Range Comments SODIUM (BEAKER) (test 136 meq/L 136-145 crtk=439) POTASSIUM (BEAKER) (test 3.9 meq/L 3.5-5.1 exgw=221) CHLORIDE (BEAKER) (test 108 meq/L 98-107 gpdz=021) CO2 (BEAKER) (test 21 meq/L 22-29 pdvl=326) BLOOD UREA NITROGEN 10 mg/dL 7-21 (BEAKER) (test wrzj=954) CREATININE (BEAKER) (test 0.86 mg/dL 0.57-1.25 zunk=573) GLUCOSE RANDOM (BEAKER) 135 mg/dL 70-105 (test qpvg=740) CALCIUM (BEAKER) (test 8.8 mg/dL 8.4-10.2 xpvv=259) EGFR (BEAKER) (test 86 mL/min/1.73 sq m ESTIMATED GFR IS NOT jmxo=0417) ACCURATE CREATININE CLEARANCE IN PREDICTING GLOMERULAR FILTRATION RATE. ESTIMATED GFR IS NOT APPLICABLE FOR DIALYSIS PATIENTS. CBC (HEMOGRAM ONLY)2018-01-26 05:51:00 Test Item Value Reference Range Comments WHITE BLOOD CELL COUNT (BEAKER) (test jpig=357) 5.9 K/ L 3.5-10.5 RED BLOOD CELL COUNT (BEAKER) (test ccxz=204) 2.64 M/ L 4.63-6.08 HEMOGLOBIN (BEAKER) (test bypq=154) 7.6 GM/DL 13.7-17.5 HEMATOCRIT (BEAKER) (test vzxs=690) 23.5 % 40.1-51.0 MEAN CORPUSCULAR VOLUME (BEAKER) (test wvxs=715) 89.0 fL 79.0-92.2 MEAN CORPUSCULAR HEMOGLOBIN (BEAKER) (test 28.8 pg 25.7-32.2 sihq=623) MEAN CORPUSCULAR HEMOGLOBIN CONC (BEAKER) (test 32.3 GM/DL 32.3-36.5 vebl=293) RED CELL DISTRIBUTION WIDTH (BEAKER) (test 14.5 % 11.6-14.4 ozpq=282) PLATELET COUNT (BEAKER) (test hpjr=567) 167 K/CU MM 150-450 MEAN PLATELET VOLUME (BEAKER) (test ockj=856) 9.9 fL 9.4-12.4 NUCLEATED RED BLOOD CELLS (BEAKER) (test 0 /100 WBC 0-0 sxpr=320) POCT-GLUCOSE [id number] 21:18:00 Test Item Value Reference Range Comments POC-GLUCOSE METER (BEAKER) 146 mg/dL 70-110 TESTED AT [address] (test ekqh=3402) [facility] [address] POCT-GLUCOSE [id number] 17:30:00 Test Item Value Reference Range Comments POC-GLUCOSE METER (BEAKER) 115 mg/dL 70-110 TESTED AT [address] (test mlwh=8980) [facility] [address] POCT-GLUCOSE [id number] 11:54:00 Test Item Value Reference Range Comments POC-GLUCOSE METER (BEAKER) 421 mg/dL 70-110 TESTED AT [address] (test hjag=5896) [facility] [address] HEMOGLOBIN [id number] 10:37:00 Test Item Value Reference Range Comments HEMOGLOBIN A1C (BEAKER) (test nkpr=298) 9.5 % 4.3-6.1 URINALYSIS W/ REFLEX URINE [id number] 09:17:00 Test Item Value Reference Range Comments COLOR (BEAKER) (test kcnh=397) Light Yellow CLARITY (BEAKER) (test qpef=423) Clear SPECIFIC GRAVITY UA (BEAKER) (test ypoq=886) 1.003 1.001-1.035 PH UA (BEAKER) (test wszl=607) 5.0 5.0-8.0 PROTEIN UA (BEAKER) (test bvai=213) Negative Negative GLUCOSE UA (BEAKER) (test ctif=379) 300 mg/dL Negative KETONES UA (BEAKER) (test bfjc=379) Negative Negative BILIRUBIN UA (BEAKER) (test dzpr=952) Negative Negative BLOOD UA (BEAKER) (test outv=798) Negative Negative NITRITE UA (BEAKER) (test powy=824) Negative Negative LEUKOCYTE ESTERASE UA (BEAKER) (test gkgb=100) Negative Negative UROBILINOGEN UA (BEAKER) (test oatp=990) 0.2 mg/dL 0.2-1.0 RBC UA (BEAKER) (test rnjn=739) < /HPF WBC UA (BEAKER) (test xdad=880) < /HPF BACTERIA (BEAKER) (test nrrd=785) Rare SOURCE(BEAKER) (test hlqd=4026) POCT-GLUCOSE [id number] 07:35:00 Test Item Value Reference Range Comments POC-GLUCOSE METER (BEAKER) 350 mg/dL 70-[address] [facility] [address] [facility] (test ahil=4821) [facility] [address] [id number] 05:57:00 Test Item Value Reference Range Comments PHOSPHORUS (BEAKER) (test lind=853) 3.3 mg/dL 2.3-4.7 [id number] 05:57:00 Test Item Value Reference Range Comments MAGNESIUM (BEAKER) (test xqww=476) 1.8 mg/dL 1.6-2.6 BASIC METABOLIC [id number] 05:57:00 Test Item Value Reference Range Comments SODIUM (BEAKER) (test 136 meq/L 136-145 grbj=143) POTASSIUM (BEAKER) (test 3.8 meq/L 3.5-5.1 egyr=322) CHLORIDE (BEAKER) (test 107 meq/L 98-107 ngjt=230) CO2 (BEAKER) (test 22 meq/L 22-29 acbz=766) BLOOD UREA NITROGEN 8 mg/dL 7-21 (BEAKER) (test bgos=399) CREATININE (BEAKER) (test 0.89 mg/dL 0.57-1.25 hhub=142) GLUCOSE RANDOM (BEAKER) 186 mg/dL 70-105 (test towc=272) CALCIUM (BEAKER) (test 8.9 mg/dL 8.4-10.2 iajq=056) EGFR (BEAKER) (test 83 mL/min/1.73 sq m ESTIMATED GFR IS NOT pepl=0702) ACCURATE CREATININE CLEARANCE IN PREDICTING GLOMERULAR FILTRATION RATE. ESTIMATED GFR IS NOT APPLICABLE FOR DIALYSIS PATIENTS. CBC (HEMOGRAM ONLY)2018-01-25 05:13:00 Test Item Value Reference Range Comments WHITE BLOOD CELL COUNT (BEAKER) (test majl=267) 5.7 K/ L 3.5-10.5 RED BLOOD CELL COUNT (BEAKER) (test nwzr=542) 2.91 M/ L 4.63-6.08 HEMOGLOBIN (BEAKER) (test wfyw=902) 8.3 GM/DL 13.7-17.5 HEMATOCRIT (BEAKER) (test uiuc=090) 25.9 % 40.1-51.0 MEAN CORPUSCULAR VOLUME (BEAKER) (test uxtl=661) 89.0 fL 79.0-92.2 MEAN CORPUSCULAR HEMOGLOBIN (BEAKER) (test 28.5 pg 25.7-32.2 vype=581) MEAN CORPUSCULAR HEMOGLOBIN CONC (BEAKER) (test 32.0 GM/DL 32.3-36.5 kuob=492) RED CELL DISTRIBUTION WIDTH (BEAKER) (test 14.5 % 11.6-14.4 hbzh=909) PLATELET COUNT (BEAKER) (test mwwy=677) 161 K/CU MM 150-450 MEAN PLATELET VOLUME (BEAKER) (test htiy=990) 9.9 fL 9.4-12.4 NUCLEATED RED BLOOD CELLS (BEAKER) (test 0 /100 WBC 0-0 pdnm=996) POCT-GLUCOSE [id number] 21:27:00 Test Item Value Reference Range Comments POC-GLUCOSE METER (BEAKER) 296 mg/dL 70-110 TESTED AT [address] (test ezte=8664) [facility] [address] POCT-GLUCOSE [id number] 17:20:00 Test Item Value Reference Range Comments POC-GLUCOSE METER (BEAKER) 206 mg/dL 70-110 TESTED AT [address] (test hxgj=7278) [facility] [address] POCT-GLUCOSE [id number] 12:01:00 Test Item Value Reference Range Comments POC-GLUCOSE METER (BEAKER) 213 mg/dL 70-110 TESTED AT [address] (test xbhi=9368) [facility] [address] POCT-GLUCOSE [id number] 12:01:00 Test Item Value Reference Range Comments POC-GLUCOSE METER (BEAKER) 234 mg/dL 70-110 TESTED AT [address] (test rhsb=9226) [facility] [address] [id number] 05:07:00 Test Item Value Reference Range Comments PHOSPHORUS (BEAKER) (test dqtn=037) 3.9 mg/dL 2.3-4.7 [id number] 05:07:00 Test Item Value Reference Range Comments MAGNESIUM (BEAKER) (test xsae=736) 1.8 mg/dL 1.6-2.6 BASIC METABOLIC [id number] 05:07:00 Test Item Value Reference Range Comments SODIUM (BEAKER) (test 135 meq/L 136-145 oimi=732) POTASSIUM (BEAKER) (test 4.3 meq/L 3.5-5.1 qccj=047) CHLORIDE (BEAKER) (test 106 meq/L 98-107 dzfa=617) CO2 (BEAKER) (test 22 meq/L 22-29 koax=336) BLOOD UREA NITROGEN 17 mg/dL 7-21 (BEAKER) (test lqvx=305) CREATININE (BEAKER) (test 0.86 mg/dL 0.57-1.25 mdbc=236) GLUCOSE RANDOM (BEAKER) 186 mg/dL 70-105 (test uagi=525) CALCIUM (BEAKER) (test 8.7 mg/dL 8.4-10.2 xsaz=978) EGFR (BEAKER) (test 86 mL/min/1.73 sq m ESTIMATED GFR IS NOT limc=5242) ACCURATE CREATININE CLEARANCE IN PREDICTING GLOMERULAR FILTRATION RATE. ESTIMATED GFR IS NOT APPLICABLE FOR DIALYSIS PATIENTS. CBC (HEMOGRAM ONLY)2018-01-24 04:43:00 Test Item Value Reference Range Comments WHITE BLOOD CELL COUNT (BEAKER) (test jfam=040) 7.2 K/ L 3.5-10.5 RED BLOOD CELL COUNT (BEAKER) (test czae=971) 2.95 M/ L 4.63-6.08 HEMOGLOBIN (BEAKER) (test tuis=497) 8.5 GM/DL 13.7-17.5 HEMATOCRIT (BEAKER) (test dfvy=214) 26.0 % 40.1-51.0 MEAN CORPUSCULAR VOLUME (BEAKER) (test yham=186) 88.1 fL 79.0-92.2 MEAN CORPUSCULAR HEMOGLOBIN (BEAKER) (test 28.8 pg 25.7-32.2 pinc=033) MEAN CORPUSCULAR HEMOGLOBIN CONC (BEAKER) (test 32.7 GM/DL 32.3-36.5 prvd=726) RED CELL DISTRIBUTION WIDTH (BEAKER) (test 14.5 % 11.6-14.4 ysds=040) PLATELET COUNT (BEAKER) (test fqak=651) 157 K/CU MM 150-450 MEAN PLATELET VOLUME (BEAKER) (test yhmg=938) 9.9 fL 9.4-12.4 NUCLEATED RED BLOOD CELLS (BEAKER) (test 0 /100 WBC 0-0 lyps=385) POCT-GLUCOSE [id number] 18:26:00 Test Item Value Reference Range Comments POC-GLUCOSE METER (BEAKER) 159 mg/dL 70-110 TESTED AT [address] (test ttts=7868) [place] [id number] POCT-GLUCOSE [id number] 12:53:00 Test Item Value Reference Range Comments POC-GLUCOSE METER (BEAKER) 189 mg/dL 70-110 TESTED AT [address] (test lbam=6658) [place] [id number] BASIC METABOLIC [id number] 14:22:00 Test Item Value Reference Range Comments SODIUM (BEAKER) (test 137 meq/L 136-145 kojg=555) POTASSIUM (BEAKER) (test 4.7 meq/L 3.5-5.1 ibds=355) CHLORIDE (BEAKER) (test 102 meq/L 98-107 zjki=201) CO2 (BEAKER) (test 26 meq/L 22-29 ragj=027) BLOOD UREA NITROGEN 17 mg/dL 7-21 (BEAKER) (test rtog=403) CREATININE (BEAKER) (test 1.21 mg/dL 0.57-1.25 zozw=644) GLUCOSE RANDOM (BEAKER) 236 mg/dL 70-105 (test zjoc=286) CALCIUM (BEAKER) (test 10.1 mg/dL 8.4-10.2 pipo=332) EGFR (BEAKER) (test 58 mL/min/1.73 sq m ESTIMATED GFR IS NOT oynz=7961) ACCURATE CREATININE CLEARANCE IN PREDICTING GLOMERULAR FILTRATION RATE. ESTIMATED GFR IS NOT APPLICABLE FOR DIALYSIS PATIENTS. [id number] 14:05:00 Test Item Value Reference Range Comments HEMOGLOBIN (BEAKER) (test xcsb=436) 9.8 GM/DL 13.7-17.5 PLATELET [id number] 14:05:00 Test Item Value Reference Range Comments PLATELET COUNT (BEAKER) (test gxyf=862) 198 K/CU MM 150-450
--- OUTSIDE RECORDS SUMMARY | 2018-03-23 07:41 | XMS REPORT | Clinical Summary ---
:1940 Author Organization [facility] Address [address] [place] [address] Care Team Providers Name Role Phone Pcp, No Primary Care Provider Unavailable Allergies No Known Allergies Medications Medication Sig Dispensed Refills Start Date End Date Status amLODIPine Take 10 mg by mouth 0 Active (NORVASC) 10 MG daily. tablet losartan (COZAAR) Take 50 mg by mouth 0 Active 50 MG tablet daily. metoprolol Take 50 mg by mouth 2 0 Active (LOPRESSOR) 50 MG (two) times daily. tablet aspirin 81 MG EC Take 81 mg by mouth 0 Active tablet daily. clopidogrel Take 75 mg by mouth 0 Active (PLAVIX) 75 mg daily. tablet famotidine (PEPCID) Take 20 mg by mouth 2 0 Active 20 MG tablet (two) times daily. atorvastatin Take 20 mg by mouth 0 Active (LIPITOR) 20 MG nightly. tablet insulin aspart Inject subcutaneously 0 Active protamine-insulin 3 (three) times daily aspart (NOVOLOG MIX Sliding scale . 70/30) 100 unit/mL (70-30) Soln injection metFORMIN Take 500 mg by mouth 0 Active (GLUCOPHAGE) 500 MG 2 (two) times daily tablet with breakfast and dinner. loperamide (IMODIUM Take 2 mg by mouth 3 0 Active A-D) 2 mg tablet (three) times daily before meals. traMADol (ULTRAM) Take 50 mg by mouth 0 Active 50 mg tablet every 6 (six) hours as needed for Pain. Active Problems Problem Noted Date Rectal cancer 01/23/2018 Encounters Date Type Specialty Care Team Description 01/23/2018 Anesthesia Event Chetan Oakley MD 01/23/2018 Surgery Dustin Cam LAPAROSCOPY,COLOSTOM MD Dar Y [place] 01/23/2018 - Hospital Encounter General Internal Dustin Cam Rectal cancer ( HCC) 01/27/2018 Medicine MD Dar (Primary Dx) 01/13/2018 Hospital Encounter Pre-Admission Dustin Cam Testing MD Dar 01/13/2018 Orders Only General Internal Medicine after 03/22/2017 Social History Tobacco Use Types [...] Vital Sign Reading Time Taken Blood Pressure 124/62 01/27/2018 8:10 AM CDT Pulse 68 01/27/2018 8:10 AM CDT Temperature 35.7 C (96.3 F) 01/27/2018 8:10 AM CDT Respiratory Rate 18 01/27/2018 8:10 AM CDT Oxygen Saturation 100% 01/27/2018 8:10 AM CDT Inhaled Oxygen Concentration - - Weight 51.7 kg (114 lb) 01/23/2018 9:36 PM CDT Height 170.2 cm (5' 7") 01/23/2018 9:36 PM CDT Body Mass Index 17.85 01/23/2018 9:36 PM CDT Plan of Treatment Not on file Procedures Procedure Name Priority Date/Time Associated Comments Diagnosis POCT-GLUCOSE METER Routine 01/26/2018 9:20 Results for this PM CDT procedure are in the results section. POCT-GLUCOSE METER Routine 01/26/2018 4:32 Results for this PM CDT procedure are in the results section. POCT-GLUCOSE METER Routine 01/26/2018 12:15 Results for this PM CDT procedure are in the results section. POCT-GLUCOSE METER Routine 01/26/2018 7:37 Results for this AM CDT procedure are in the results section. CBC (HEMOGRAM ONLY) Routine 01/26/2018 5:11 Results for this AM CDT procedure are in the results section. PHOSPHORUS Routine 01/26/2018 5:11 Results for this AM CDT procedure are in the results section. MAGNESIUM Routine 01/26/2018 5:11 Results for this AM CDT procedure are in the results section. BASIC METABOLIC Routine 01/26/2018 5:11 Results for this PANEL (7) AM CDT procedure are in the results section. POCT-GLUCOSE METER Routine 01/25/2018 9:12 Results for this PM CDT procedure are in the results section. POCT-GLUCOSE METER Routine 01/25/2018 5:27 Results for this PM CDT procedure are in the results section. POCT-GLUCOSE METER Routine 01/25/2018 11:52 Results for this AM CDT procedure are in the results section. POCT-GLUCOSE METER Routine 01/25/2018 7:33 Results for this AM CDT procedure are in the results section. URINALYSIS W/ REFLEX Routine 01/25/2018 6:57 Results for this URINE CULTURE AM CDT procedure are in the results section. CBC (HEMOGRAM ONLY) Routine 01/25/2018 4:37 Results for this AM CDT procedure are in the results section. PHOSPHORUS Routine 01/25/2018 4:37 Results for this AM CDT procedure are in the results section. MAGNESIUM Routine 01/25/2018 4:37 Results for this AM CDT procedure are in the results section. BASIC METABOLIC Routine 01/25/2018 4:37 Results for this PANEL (7) AM CDT procedure are in the results section. HEMOGLOBIN A1C Routine 01/25/2018 4:37 Results for this AM CDT procedure are in the results section. POCT-GLUCOSE METER Routine 01/24/2018 9:17 Results for this PM CDT procedure are in the results section. POCT-GLUCOSE METER Routine 01/24/2018 4:48 Results for this PM CDT procedure are in the results section. POCT-GLUCOSE METER Routine 01/24/2018 11:20 Results for this AM CDT procedure are in the results section. POCT-GLUCOSE METER Routine 01/24/2018 8:32 Results for this AM CDT procedure are in the results section. CBC (HEMOGRAM ONLY) Routine 01/24/2018 4:13 Results for this AM CDT procedure are in the results section. PHOSPHORUS Routine 01/24/2018 4:13 Results for this AM CDT procedure are in the results section. MAGNESIUM Routine 01/24/2018 4:13 Results for this AM CDT procedure are in the results section. BASIC METABOLIC Routine 01/24/2018 4:13 Results for this PANEL (7) AM CDT procedure are in the results section. POCT-GLUCOSE METER Routine 01/23/2018 6:24 Results for this PM CDT procedure are in the results section. TISSUE EXAM AP Routine 01/23/2018 5:49 Results for this PM CDT procedure are in the results section. LAPAROSCOPY,COLOSTOM 01/23/2018 2:45 CA of rectum (HCC) Y TAKEDOWN PM CDT POCT-GLUCOSE METER Routine 01/23/2018 12:46 Results for this PM CDT procedure are in the results section. TRANSFUSION SERVICE 01/14/2018 6:03 REPORT - SCAN PM CDT TYPE AND SCREEN, Routine 01/13/2018 12:32 Results for this AUTOMATED PM CDT procedure are in the results section. BASIC METABOLIC Routine 01/13/2018 12:32 Results for this PANEL (7) PM CDT procedure are in the results section. PLATELET COUNT Routine 01/13/2018 12:32 Results for this PM CDT procedure are in the results section. HEMOGLOBIN Routine 01/13/2018 12:32 Results for this PM CDT procedure are in the results section. ECG 12-LEAD Routine 01/13/2018 12:28 PM CDT Procedure Note - Interface, External Ris In - 01/13/2018 4:27 PM CDT Ventricular Rate 70 BPM Atrial Rate 70 BPM P-R Interval 194 ms QRS Duration 100 ms Q-T Interval 396 ms QTC Calculation(Bazett) 427 ms P [place] 76 degrees R [place] -23 degrees [place] 79 degrees Normal sinus rhythm Normal ECG No previous ECGs available ECG 12-LEAD Routine 01/13/2018 12:28 PM CDT after 03/22/2017 Results POC-Glucose meter (01/26/2018 9:20 PM CDT)Only the most recent of14 resultswithin the time period is included. POC-Glucose Meter 103Comment: TESTED AT 70 - 110 mg/dL [facility] [address] [facility] [address] Specimen Blood Performing Organization Address City/State/Zipcode Phone Number [address] [address] [phone] CENTER CBC (Hemogram only) (01/26/2018 5:11 AM CDT)Only the most recent of3 resultswithin the time period is included. WBC 5.9 3.5 - 10.5 K/L [facility] RBC 2.64 (L) 4.63 - 6.08 M/L [facility] Hemoglobin 7.6 (L) 13.7 - 17.5 GM/DL [facility] Hematocrit 23.5 (L) 40.1 - 51.0 % [facility] MCV 89.0 79.0 - 92.2 fL [facility] MCH 28.8 25.7 - 32.2 pg [facility] MCHC 32.3 32.3 - 36.5 GM/DL [facility] RDW 14.5 (H) 11.6 - 14.4 % [facility] Platelets 167 150 - 450 K/CU MM [facility] MPV 9.9 9.4 - 12.4 fL [facility] nRBC 0 0 - 0 /100 WBC [facility] Specimen Blood - Arm, Left Performing Organization Address City/[facility] Phone Number [address] [address] [phone] CENTER Phosphorus (01/26/2018 5:11 AM CDT)Only the most recent of3 resultswithin the time period is included. Phosphorus 3.4 2.3 - 4.7 mg/dL [facility] Specimen Blood - Arm, Left Performing Organization Address City/[facility] Phone Number [address] [address] CENTER Magnesium (01/26/2018 5:11 AM CDT)Only the most recent of3 resultswithin the time period is included. Magnesium 1.6 1.6 - 2.6 mg/dL [facility] Specimen Blood - Arm, Left Performing Organization Address City/[facility] Phone Number [facility] [address] [place] [address] CENTER Basic Metabolic Panel (01/26/2018 5:11 AM CDT)Only the most recent of4 resultswithin the time period is included. Sodium 136 136 - 145 meq/L [facility] Potassium 3.9 3.5 - 5.1 meq/L [facility] Chloride 108 (H) 98 - 107 meq/L [facility] CO2 21 (L) 22 - 29 meq/L [facility] BUN 10 7 - 21 mg/dL [facility] Creatinine 0.86 0.57 - 1.25 mg/dL [facility] Glucose 135 (H) 70 - 105 mg/dL [facility] Calcium 8.8 8.4 - 10.2 mg/dL [facility] EGFR 86Comment: ESTIMATED GFR IS mL/min/1.73 sq m [facility] NOT ACCURATE CREATININE [facility] CENTER CLEARANCE IN PREDICTING GLOMERULAR FILTRATION RATE. ESTIMATED GFR IS NOT APPLICABLE FOR DIALYSIS PATIENTS. Specimen Blood - Arm, Left Performing Organization Address City/[facility]/Zipcode Phone Number [facility] [address] [place] [address] [place] Urinalysis w/Microscopic + Reflex to Culture (01/25/2018 6:57 AM CDT) Color, UA Light Yellow [facility] Clarity, UA Clear [facility] Specific [place], UA 1.003 1.001 - 1.035 [facility] pH, UA 5.0 5.0 - 8.0 [facility] Protein, UA Negative Negative [facility] Glucose, UA 300 mg/dL (A) Negative [facility] Ketones, UA Negative Negative [facility] Bilirubin, UA Negative Negative [facility] Blood, UA Negative Negative [facility] Nitrite, UA Negative Negative [facility] Leukocytes, UA Negative Negative [facility] Urobilinogen, UA 0.2 0.2 - 1.0 mg/dL [facility] RBC, UA <1 /HPF [facility] WBC, UA <1 /HPF [facility] Bacteria, UA Rare [facility] Specimen Source [facility] Specimen Urine - Urine, Voided Performing Organization Address City/State/Zipcode Phone Number [address] [address] [place] Hemoglobin A1c (01/25/2018 4:37 AM CDT) Hemoglobin A1C 9.5 (H) 4.3 - 6.1 % [facility] Specimen Blood - Arm, Left Performing Organization Address City/[facility] Phone Number [address] [address] [place] Tissue Exam (01/23/2018 5:49 PM CDT) Case Report Surgical Pathology Report Case: [id number] [facility] Authorizing Provider:Dustin Cam MDCollected: 01/23/2018 1749 [facility] Ordering Location: [facility] PERIOPERATIVE Received: 01/24/2018 0819 SERVICES Pathologist: Mak Combs MD Specimen:Ileostomy DIAGNOSIS A. ILEUM, ILEOSTOMY TAKEDOWN: [facility] - SMALL BOWEL WITH FOCAL EROSION,CONGESTION, SUBMUCOSAL FIBROSIS [facility] - SKIN WITH REACTIVE CHANGES - NEGATIVE FOR DYSPLASIA AND MALIGNANCY Signing Pathologist Direct Phone Line: [phone] CPT Code(s) 83743 X 1 [facility] CLINICAL HISTORY Cancer of rectum [facility] SPECIMEN SOURCE Ileostomy [facility] GROSS DESCRIPTION The specimen is received in a formalin-filled container labeled with the patient's information and labeled "ileostomy" and consists of a segment of small bowel measuring 6 cm in length x 3.5 cm in circu [facility] mference with de la cruz-pink skin component that is centrally located measuring 3.5 x 2 x 0.5 cm. The serosa is de la cruz-red and dull with adhesions. No distinct abnormality is seen. [facility] Section code: A1, stapled margins en face; A2, A3, major account representative small bowel and skin component. CG/ew MICROSCOPIC DESCRIPTION Performed [facility] Specimen Tissue - Ileostomy Performing Organization Address [facility] Phone Number [address] [address] [phone] [place] TRANSFUSION SERVICE REPORT - SCAN (01/14/2018 6:03 PM CDT) Narrative Performed At Type and screen, automated (01/13/2018 12:32 PM CDT) ABO/RH AUTOMATED (BEAKER) O POSITIVE [facility] Ab Scrn NEGATIVE [facility] Specimen Blood Performing Organization Address [facility] Phone Number [address] [address] Platelet count (01/13/2018 12:32 PM CDT) Platelets 198 150 - 450 K/CU MM [facility] Specimen Blood Performing Organization Address [facility] Phone Number [address] [address] [phone] [place] Hemoglobin (01/13/2018 12:32 PM CDT) Hemoglobin 9.8 (L) 13.7 - 17.5 GM/DL [facility] Specimen Blood Performing Organization Address [facility] Phone Number [address] [address] [place] ECG 12 lead (01/13/2018 12:28 PM CDT) Narrative Performed At Ventricular Rate 70 BPM GE MUSE Atrial Rate 70 BPM P-R Interval 194 ms QRS Duration 100 ms Q-T Interval 396 ms QTC Calculation(Bazett) 427 ms P [place] 76 degrees R [place] -23 degrees [place] 79 degrees Normal sinus rhythm Normal ECG No previous ECGs available Confirmed by MD GIOVANNI, LEI ([id number]) on 01/14/2018 4:10:07 PM Procedure Note Interface, External Ris In - 01/14/2018 4:10 PM CDT Ventricular Rate 70 BPM Atrial Rate 70 BPM P-R Interval 194 ms QRS Duration 100 ms Q-T Interval 396 ms QTC Calculation(Bazett) 427 ms P [place] 76 degrees [place] -23 degrees [place] 79 degrees Normal sinus rhythm Normal ECG No previous ECGs available Confirmed by MD GIOVANNI, LEI ([id number]) on 01/14/2018 4:10:07 PM Performing Organization Address City/State/Zipcode Phone Number GE MUSE after 03/22/2017 Insurance Payer Benefit Plan / Group Subscriber ID Type Phone Address MEDICARE MEDICARE A B xxxxxxxxxxx Medicare (Home) [address] [place] [phone] Advance Directives For more information, please contact:[address] [phone] Code Status Date Activated Date Inactivated Comments Full Code 01/23/2018 9:31 PM 01/27/2018 12:25 PM This code status was determined by: Patient
[2018-03-23] MEDS ORDERED: NA CHLORIDE 0.9% 250 ML ONE ×2 (08:06→10:28)
[2018-03-23 15:16] LABS: Hematocrit 26.7 % (39.6-49.0)
== END 2018-03-23 15:15 | disposition home or self-care (01) ==
LOC: DS 07:36
PROVIDERS: ATTEND Internal Medicine Medical Oncology
DX: D50.9 Iron deficiency anemia, unspecified (principal); C20 Malignant neoplasm of rectum
CPT/HCPCS: 36415; 36430; 85014; 85018; 86850; 86900; 86901; P9016 ×2